=== PATIENT | male | born 1965 | race Caucasian/White ===

== ENCOUNTER 2020-04-09 06:49 | Outpatient (NON) | payer BC, SELFPAY ==
[2020-04-10 22:35] LABS: SARS-CoV-2 RNA PCR Positive
== END 2020-04-09 06:50 ==
LOC: ANHCOVIDDT 06:56
PROVIDERS: PCP Physician Assistant; Visit Provider Family Medicine
DX: U07.1 COVID-19 (principal)
CPT/HCPCS: 87635; C9803; U0003